=== PATIENT | female | born 1950 ===

== ENCOUNTER 2024-08-13 05:43 | Day surgery (SDC) | payer OTHER ==
[2024-08-05 11:23] VITALS: BP 159/83
[~2024-08-13] VITALS: Ht 157.5 cm; Wt 94.8 kg
[~2024-08-13 05:43] MED LIST: ELIQUIS5 MG PO; SIMVASTATIN20 MG PO
[2024-08-13] MEDS ORDERED: CIPROFLOXACIN IN 5 % DEXTROSE 400 MG/200 ML PIGGYBAG IV ONE (10:22)
[2024-08-13] MEDS ORDERED: BUPIVACAINE HCL/MPF 0.5% 30ML VIAL ONE (10:39)
[2024-08-13] MEDS ORDERED: GENTAMICIN SULFATE 40 MG/ML VIAL ONE (10:48)
[2024-08-13] MEDS ORDERED: TRAM1TAB98 PO (12:04)
== END 2024-08-13 15:23 | disposition home or self-care (01) ==
LOC: CIR.AMB 05:43
PROVIDERS: ATTEND Obstetrics & Gynecology Gynecology
DX: N39.41 Urge incontinence (principal); N32.81 Overactive bladder
CPT/HCPCS: 64581; 64590; 95972; C1767; C1778